=== PATIENT | female | born 1965 | race African-American/Black ===

== ENCOUNTER 2018-08-08 15:41 | Emergency (ER) | payer OTHER | END 2018-08-08 18:47 | disposition left against medical advice (07) | LOC: ERS 15:41 | DX: Z53.21 Procedure and treatment not carried out due to patient leaving prior to being seen by health care provider (principal) ==

== ENCOUNTER 2020-03-22 15:17 | Inpatient (IN) | payer SELFPAY ==
[2020-03-22] MEDS ORDERED: Albuterol 200 PUFF (6.7GM INHALER) ONE (16:08)
[2020-03-22 16:21] LABS: #Basophils 0.1 thou/uL (0.0-0.2); #Eosinphils 0.3 thou/uL (0.0-0.7); #Lymphocytes 1.9 thou/uL (1.20-3.40); #Monocytes 0.4 thou/uL (0.11-0.59); #Neutrophils 2.4 thou/uL (1.40-6.50); %Eosinophils 6.4 % (0.0-10.0); %Monocytes 7.2 % (0.0-10.0); %Neutrophils 47.4 % (42.0-75.0); Hemoglobin 14.2 g/dL (12.0-16.0); Mean Corpuscular HGB CONC 32.9 g/dL (32.0-36.0); Mean Corpuscular Volume 88.2 fL (78.0-98.0); Mean Platelet Volume 8.9 fL (7.4-10.4); Platelet Count 168 thou/uL (130-400); RBC Distribution Width 14.1 % (11.5-14.5); Red Blood Cell (RBC) Count 4.89 mill/uL (4.20-5.40)
[2020-03-22 16:25] LABS: Bacteria/HPF 2+ HPF (None Seen); Bilirubin Negative (Negative); Blood, Urine Negative (Negative); Clarity Turbid (Clear); Glucose, Urine (Dipstick) Normal (Negative); Ketone, Urine Negative (Negative); Leukocyte 75 Leu/uL (Negative); Nitrite Negative (Negative); Protein, Urine (Dipstick) 10 mg/dL (Neg-Trace); RBC/HPF 0-3 HPF (0-3); Specific Gravity, Urine 1.026 (1.002-1.036); Squamous Epithelial 21-50 HPF (0-3); Urobilinogen Normal mg/dL (Less than 2)
--- NOTE | 2020-03-22 16:25 | RAD ---
PORTABLE CHEST ONE VIEW: 03/22/20 at 4:05 p.m. HISTORY: Chest pain. COMPARISON: 04/06/16. FINDINGS: The heart size is normal. The lungs are expanded without focal areas of consolidation, pneumothoraces or pleural effusions. IMPRESSION: No acute process. POS: OFF
[2020-03-22] MEDS ORDERED: methylPREDNISolone Sod Succ/PF 125 MG/2 ML VIAL ONE (16:39)
[2020-03-22 16:55] LABS: ALT (SGPT) 21 U/L (8-55); AST (SGOT) 19 U/L (5-34); Alkaline Phosphatase 93 U/L (40-110); Anion Gap 12 mmol/L (10-20); BUN (Urea Nitrogen) 14 mg/dL (9.8-20.1); Bilirubin, Total 0.4 mg/dL (0.2-1.2); Calc. Creatinine Clearance 0 mL/min (70-130); Calcium 9.3 mg/dL (7.8-10.44); Carbon Dioxide 27 mmol/L (22-29); Chloride 106 mmol/L (98-107); Globulin 3.3 g/dL (2.4-3.5); Glucose 92 mg/dL (70-105); Potassium 4.3 mmol/L (3.5-5.1); Protein, Total 7.3 g/dL (6.0-8.3); Sodium 141 mmol/L (136-145)
[2020-03-22] MEDS ORDERED: Azithromycin 500 MG VIAL ONE (16:59)
[2020-03-22] MEDS ORDERED: Nitroglycerin 2% Ointment 1 INCH/1 GM Packet ONE (17:12)
[2020-03-22] MEDS ORDERED: Labetalol HCl 100 MG/20 ML VIAL ONE (17:12)
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
[2020-03-22 17:57] LABS: SARS-CoV-2 NAA Rapid Test Not Detected (NotDetected)
[2020-03-22] MEDS ORDERED: Albuterol Sulfate 2.5 mg/3 ml Neb NEB PRN (18:15)
[2020-03-22] MEDS ORDERED: cefTRIAXone\\ROCEPHIN 1 GM VIAL ONE (18:16)
[2020-03-22] MEDS ORDERED: Ondansetron PF 4 MG/2 ML Vial IVP PRN (18:20)
[2020-03-22] MEDS ORDERED: Guaifenesin DM 100-10/5 ML UDCUP PO PRN (18:20)
[2020-03-22] MEDS ORDERED: Acetaminophen 500 MG TAB ONE ×2 (18:31→18:32)
[2020-03-22] MEDS ORDERED: Bacteriostatic Water 30 ML VIAL FS PRN (18:45)
[2020-03-22] MEDS ORDERED: Lisinopril/Hydrochlorothiazide 20 mg/12.5 mg Tablet PO SCH (18:45)
[2020-03-22] MEDS: Nicotine 14 MG PATCH TD SCH (20:29)
[2020-03-22] MEDS: HYDROcodone/Acetaminophen 5/325 mg Tablet PO PRN (20:29)
[2020-03-22] MEDS: Doxycycline 100 MG CAP PO SCH (20:29)
[2020-03-22] MEDS: Carvedilol 6.25 MG TAB PO SCH (20:30)
[2020-03-22] MEDS: hydrALAZINE 20 MG/ML VIAL SLOW IVP PRN (22:26)
[2020-03-22] MEDS: Labetalol HCl 100 MG/20 ML VIAL SLOW IVP PRN (23:59)
[2020-03-23] MEDS: methylPREDNISolone Sod Succ 40 MG VIAL IVP SCH ×4 (00:01→18:34)
[2020-03-23] MEDS ORDERED: NIFEdipine XL 60 MG TAB PO SCH ×2 (01:45→09:00)
[2020-03-23] MEDS ORDERED: Melatonin 3 MG TAB PO SCH ×2 (02:15→21:00)
[2020-03-23] MEDS: Acetaminophen 325 MG TAB PO PRN ×3 (02:20→12:52)
[2020-03-23] MEDS: Benzonatate 100 MG CAP PO PRN ×2 (02:21→21:47)
[2020-03-23] MEDS ORDERED: cloNIDine 0.2 MG TAB PO SCH (03:30)
[2020-03-23] MEDS: hydrALAZINE 20 MG/ML VIAL SLOW IVP PRN (03:32)
[2020-03-23 04:48] LABS: #Monocytes 0.1 thou/uL (0.11-0.59); %Basophils 0.5 % (0.0-1.0); %Eosinophils 0.3 % (0.0-10.0); %Lymphocytes 19.8 % (21.0-51.0); %Monocytes 0.9 % (0.0-10.0); %Neutrophils 78.6 % (42.0-75.0); Hemoglobin 14.3 g/dL (12.0-16.0); Mean Corpuscular HGB CONC 32.2 g/dL (32.0-36.0); Mean Corpuscular Hemoglobin 28.4 pg (27.0-31.0); Mean Corpuscular Volume 88.1 fL (78.0-98.0); Mean Platelet Volume 8.9 fL (7.4-10.4); Platelet Count 162 thou/uL (130-400); RBC Distribution Width 14.1 % (11.5-14.5); Red Blood Cell (RBC) Count 5.02 mill/uL (4.20-5.40); White Blood Cell (WBC) Count 5.1 thou/uL (4.8-10.8)
[2020-03-23 05:15] LABS: ALT (SGPT) 19 U/L (8-55); AST (SGOT) 17 U/L (5-34); Albumin 4.1 g/dL (3.5-5.0); Alkaline Phosphatase 93 U/L (40-110); Anion Gap 16 mmol/L (10-20); BUN (Urea Nitrogen) 15 mg/dL (9.8-20.1); Bilirubin, Total 0.3 mg/dL (0.2-1.2); Calc. Creatinine Clearance 167 mL/min (70-130); Calcium 9.7 mg/dL (7.8-10.44); Carbon Dioxide 23 mmol/L (22-29); Chloride 104 mmol/L (98-107); Globulin 3.4 g/dL (2.4-3.5); Glucose 138 mg/dL (70-105); Potassium 3.9 mmol/L (3.5-5.1); Protein, Total 7.5 g/dL (6.0-8.3); Sodium 139 mmol/L (136-145)
[2020-03-23] MEDS: Carvedilol 6.25 MG TAB PO SCH ×2 (08:38→21:32)
[2020-03-23] MEDS: Aspirin 81 mg Enteric Coated Tablet PO SCH (08:38)
[2020-03-23] MEDS: Enoxaparin Sodium 40 MG/0.4 ML SYRINGE SC SCH (08:39)
[2020-03-23] MEDS: NIFEdipine XL 60 MG TAB PO SCH (08:39)
[2020-03-23] MEDS: Doxycycline 100 MG CAP PO SCH ×2 (08:39→21:32)
[2020-03-23] MEDS ORDERED: Lisinopril/Hydrochlorothiazide 20 mg/12.5 mg Tablet PO SCH ×2 (09:00→12:00)
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
[2020-03-23] MEDS: Nicotine 14 MG PATCH TD SCH (21:31)
[2020-03-23] MEDS: guaiFENesin ER 600 MG TAB PO SCH (21:32)
[2020-03-23] MEDS: Labetalol HCl 100 MG/20 ML VIAL SLOW IVP PRN (21:36)
[2020-03-24] MEDS: methylPREDNISolone Sod Succ 40 MG VIAL IVP SCH ×2 (01:52→06:12)
[2020-03-24] MEDS: Acetaminophen 325 MG TAB PO PRN (01:56)
[2020-03-24 05:08] LABS: #Monocytes 0.5 thou/uL (0.11-0.59); #Neutrophils 10.5 thou/uL (1.40-6.50); %Basophils 0.1 % (0.0-1.0); %Lymphocytes 7.9 % (21.0-51.0); %Monocytes 4.3 % (0.0-10.0); %Neutrophils 87.6 % (42.0-75.0); Hemoglobin 13.8 g/dL (12.0-16.0); Mean Corpuscular HGB CONC 32.7 g/dL (32.0-36.0); Mean Corpuscular Volume 88.7 fL (78.0-98.0); Platelet Count 177 thou/uL (130-400); RBC Distribution Width 14.3 % (11.5-14.5); Red Blood Cell (RBC) Count 4.77 mill/uL (4.20-5.40)
[2020-03-24 05:19] LABS: Anion Gap 14 mmol/L (10-20); BUN (Urea Nitrogen) 16 mg/dL (9.8-20.1); Calc. Creatinine Clearance 171 mL/min (70-130); Calcium 9.5 mg/dL (7.8-10.44); Carbon Dioxide 25 mmol/L (22-29); Chloride 104 mmol/L (98-107); Glucose 131 mg/dL (70-105); Sodium 139 mmol/L (136-145)
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
[2020-03-24] MEDS: HYDROcodone/Acetaminophen 5/325 mg Tablet PO PRN (08:30)
[2020-03-24] MEDS: NIFEdipine XL 60 MG TAB PO SCH (08:31)
[2020-03-24] MEDS: Carvedilol 6.25 MG TAB PO SCH (08:31)
[2020-03-24] MEDS: guaiFENesin ER 600 MG TAB PO SCH (08:31)
[2020-03-24] MEDS: Doxycycline 100 MG CAP PO SCH (08:31)
[2020-03-24] MEDS: Enoxaparin Sodium 40 MG/0.4 ML SYRINGE SC SCH (08:32)
[2020-03-24] MEDS: Aspirin 81 mg Enteric Coated Tablet PO SCH (08:32)
[2020-03-24] MEDS ORDERED: Lisinopril/Hydrochlorothiazide 20 mg/12.5 mg Tablet PO SCH (09:00)
[2020-03-24 11:46] VITALS: BP 172/90
[2020-03-24 12:15] VITALS: TEMP 98.1
--- NOTE | 2020-03-25 14:26 | DIS ---
DATE OF ADMISSION: 03/24/2020 DATE OF DISCHARGE: 03/24/2020 PRIMARY CARE PHYSICIAN: Jason Gonsalez. DIAGNOSES AT ADMISSION: Chronic obstructive pulmonary disease exacerbation and left arm pain. DIAGNOSES AT DISCHARGE: 1. Chronic obstructive pulmonary disease exacerbation, resolved. 2. Uncontrolled hypertension, improved. 3. Left arm pain, chronic, musculoskeletal. 4. Tobacco abuse. 5. Morbid obesity. 6. Medication noncompliance. PROCEDURES: None. CONSULTATIONS: None. SUMMARY OF HOSPITAL COURSE: This is a 54-year-old female with a history of COPD, smoking abuse, and hypertension, not taking any medications. She has a history of medication noncompliance and getting charley horses that caused her to want to stop her blood pressure medications. She came in with shortness of breath, was noted to have severe elevations of blood pressure in the 200s/100s, along with some expiratory wheezes and dyspnea. She was treated with some albuterol and steroids and antibiotics. Her respiratory symptoms did resolve over the next two days. She also had blood pressure medicines restarted and adjusted and her blood pressure came down markedly, running in the 140s to 170s at the time of discharge without any symptoms. She tolerated the blood pressure medicines well without side effects, and so she is being discharged on those along with some magnesium and potassium to prevent charley horses. DISCHARGE MANAGEMENT: Discharged home. Follow up with primary care physician in 7 days. ACTIVITY: As tolerated. DIET: Healthy heart, low-sodium diet. DISCHARGE MEDICATIONS: 1. Carvedilol 12.5 mg twice a day, 60 tablets dispensed. 2. Aspirin 81 mg daily, 30 tablets dispensed. 3. Potassium chloride 10 mEq daily, 30 tablets dispensed. 4. Magnesium oxide 400 mg daily, 30 tablets dispensed. 5. Lisinopril/hydrochlorothiazide 20/12.5 mg two tablets p.o. daily, 60 tablets dispensed. 6. Procardia XL 60 mg daily, 30 tablets dispensed. 7. Albuterol sulfate inhaler two puffs every 4 hours as needed for coughing, shortness of breath, or wheezing, one inhaler dispensed. Job ID: [id number]
--- NOTE | 2020-03-29 10:41 | EKG ---
Test Reason : Blood Pressure : / mmHG Vent. Rate : 079 BPM Atrial Rate : 079 BPM P-R Int : 138 ms QRS Dur : 090 ms QT Int : 390 ms P-R-T Axes : 070 056 041 degrees QTc Int : 447 ms Normal sinus rhythm Normal ECG Confirmed by SHIVAM LIVINGSTON, NANCIE Jones ([id number]), deputy editor in chief IKER ENRIQUEZ ([id number]) on 03/29/2020 10:41:31 AM Referred By: Confirmed By:NANCIE LANGLEY MD
== END 2020-03-24 12:17 | disposition home or self-care (01) | DRG 191 ==
LOC: ERS 15:17 → 2SE 18:27 → OBSVTOIN 03-24 11:01
PROVIDERS: ADMIT Internal Medicine; ATTEND Emergency Medicine
DX: J44.1 Chronic obstructive pulmonary disease with (acute) exacerbation (principal); Z68.42 Body mass index [BMI] 45.0-49.9, adult; I16.1 Hypertensive emergency; I10 Essential (primary) hypertension; E66.01 Morbid (severe) obesity due to excess calories; Z20.828 Contact with and (suspected) exposure to other viral communicable diseases; Z88.0 Allergy status to penicillin; M79.602 Pain in left arm; Z91.14 Patient's other noncompliance with medication regimen
CPT/HCPCS: 0240U; 36415; 71045; 80048; 80053; 81003; 81015; 83605; 83880; 84484; 85025; 93005; 93010; 94640; 94760; 96365; 96367; 96375; 96376; G0378; J0360; J0456; J0696; J2920; J2930; J7620

== ENCOUNTER 2020-08-27 16:01 | Emergency (ER) | payer SELFPAY ==
[2020-08-27 16:26] LABS: #Eosinphils 0.5 thou/uL (0.0-0.7); #Lymphocytes 1.3 thou/uL (1.20-3.40); #Monocytes 0.4 thou/uL (0.11-0.59); #Neutrophils 4.8 thou/uL (1.40-6.50); %Basophils 0.5 % (0.0-1.0); %Eosinophils 6.9 % (0.0-10.0); %Lymphocytes 18.8 % (21.0-51.0); %Monocytes 5.9 % (0.0-10.0); %Neutrophils 67.9 % (42.0-75.0); Hemoglobin 14.7 g/dL (12.0-16.0); Mean Corpuscular HGB CONC 32.6 g/dL (32.0-36.0); Mean Corpuscular Hemoglobin 29.1 pg (27.0-31.0); Mean Corpuscular Volume 89.4 fL (78.0-98.0); Platelet Count 174 thou/uL (130-400); RBC Distribution Width 14.3 % (11.5-14.5); Red Blood Cell (RBC) Count 5.03 mill/uL (4.20-5.40); White Blood Cell (WBC) Count 7.1 thou/uL (4.8-10.8)
[2020-08-27 16:47] LABS: ALT (SGPT) 16 U/L (8-55); AST (SGOT) 15 U/L (5-34); Albumin 4.1 g/dL (3.5-5.0); Alkaline Phosphatase 104 U/L (40-110); Anion Gap 12 mmol/L (10-20); BUN (Urea Nitrogen) 14 mg/dL (9.8-20.1); Bilirubin, Total 0.4 mg/dL (0.2-1.2); Calc. Creatinine Clearance 0 mL/min (70-130); Calcium 9.4 mg/dL (7.8-10.44); Carbon Dioxide 26 mmol/L (22-29); Chloride 108 mmol/L (98-107); Globulin 3.1 g/dL (2.4-3.5); Glucose 108 mg/dL (70-105); Potassium 4.7 mmol/L (3.5-5.1); Protein, Total 7.2 g/dL (6.0-8.3); Sodium 141 mmol/L (136-145)
== END 2020-08-27 18:00 | disposition home or self-care (01) ==
LOC: ERS 16:01
DX: R07.89 Other chest pain (principal); R06.00 Dyspnea, unspecified; I10 Essential (primary) hypertension; J45.909 Unspecified asthma, uncomplicated; F17.210 Nicotine dependence, cigarettes, uncomplicated
CPT/HCPCS: 36415; 71045; 80053; 83880; 84484; 85025; 93005; 94760

== ENCOUNTER 2021-11-07 12:18 | Emergency (ER) | payer SELFPAY ==
[2021-11-07 14:53] LABS: Bilirubin Negative (Negative); Blood, Urine Negative (Negative); Clarity Clear (Clear); Glucose, Urine (Dipstick) Normal (Negative); Ketone, Urine Negative (Negative); Leukocyte Negative Leu/uL (Negative); Nitrite Negative (Negative); Protein, Urine (Dipstick) Negative (Neg-Trace); Urobilinogen Normal mg/dL (Less than 2); pH, Urine 6.5 (5.0-9.0)
[2021-11-07] MEDS ORDERED: Morphine 4 MG/ML VIAL ONE (14:55)
[2021-11-07] MEDS ORDERED: niCARdipine 25 MG/10 ML VIAL ONE (14:55)
[2021-11-07] MEDS ORDERED: Aspirin Chewable 81 MG TAB ONE (14:55)
== END 2021-11-07 15:19 | disposition home or self-care (01) ==
LOC: ERS 12:18
DX: R10.2 Pelvic and perineal pain (principal); I10 Essential (primary) hypertension; F17.210 Nicotine dependence, cigarettes, uncomplicated
CPT/HCPCS: 71045; 76856; 81003; J2270

== ENCOUNTER 2024-03-10 10:31 | Emergency (ER) | payer OTHER ==
[2024-03-10 11:06] LABS: #Basophils Less than 0.03 10x3/uL (0.0-0.2); %Basophils 0.5 % (0.0-1.0); %Eosinophils 4.9 % (0.0-10.0); %Lymphocytes 40.9 % (21.0-51.0); %Monocytes 8.2 % (0.0-10.0); %Neutrophils 45.2 % (42.0-75.0); Hematocrit 43.3 % (36.0-47.0); Hemoglobin 14.2 g/dL (12.0-16.0); Mean Corpuscular HGB CONC 32.8 g/dL (32.0-36.0); Mean Corpuscular Hemoglobin 27.7 pg (27.0-31.0); Mean Corpuscular Volume 84.6 fL (78.0-98.0); Platelet Count 206 10x3/uL (130-400); RBC Distribution Width 14.8 % (11.5-14.5); Red Blood Cell (RBC) Count 5.12 mill/uL (4.20-5.40)
[2024-03-10 11:22] LABS: ALT (SGPT) 10 U/L (8-55); AST (SGOT) 12 U/L (5-34); Albumin 3.7 g/dL (3.5-5.0); Alkaline Phosphatase 81 U/L (40-110); Anion Gap 13 mmol/L (10-20); BUN (Urea Nitrogen) 11 mg/dL (9.8-20.1); Bilirubin, Total 0.5 mg/dL (0.2-1.2); Calc. Creatinine Clearance 0 mL/min (70-130); Calcium 9.2 mg/dL (7.8-10.44); Carbon Dioxide 24 mmol/L (22-29); Chloride 107 mmol/L (98-107); Estimated GFR 73; Globulin 3.4 g/dL (2.4-3.5); Glucose 128 mg/dL (70-105); Potassium 3.7 mmol/L (3.5-5.1); Protein, Total 7.1 g/dL (6.0-8.3); Sodium 140 mmol/L (136-145)
[2024-03-10 11:23] LABS: Acetaminophen Less than 10 mcg/mL (Less than 10); Alcohol Less than 10.0 mg/dL (Less than 10); Salicylate Less than 8.0 mg/dL (Less than 8.0)
[2024-03-10 11:26] LABS: Troponin I Less than 0.010 ng/mL (< 0.028)
[2024-03-10 12:14] LABS: Bacteria/HPF None Seen HPF (None Seen); Bilirubin Negative (Negative); Blood, Urine Negative (Negative); CAUTI Indications for Culture Pelvic or flank pain; Clarity Turbid (Clear); Glucose, Urine (Dipstick) Normal (Negative); Ketone, Urine Negative (Negative); Leukocyte Negative Leu/uL (Negative); Nitrite Negative (Negative); Protein, Urine (Dipstick) Negative (Neg-Trace); RBC/HPF 0-3 HPF (0-3); Specific Gravity, Urine 1.009 (1.002-1.036); Urobilinogen Normal mg/dL (Less than 2); WBC/HPF 0-3 HPF (0-3)
[2024-03-10 12:17] LABS: Urine Culture Reflex No No
[2024-03-10 12:19] LABS: Amphetamine Not Detected (NotDetected); Barbiturates Screen Not Detected (NotDetected); Benzodiazepine Screen Not Detected (NotDetected); Cocaine Metabolite Screen Not Detected (NotDetected); Methadone Not Detected (NotDetected); Methamphetamine Not Detected (NotDetected); Opiate Screen Not Detected (NotDetected); Oxycodone Screen Not Detected (NotDetected); Phencyclidine (PCP) Not Detected (NotDetected); THC/Cannabinoid Screen Detected (NotDetected); Tricyclic Screen Not Detected (NotDetected)
[2024-03-10] MEDS ORDERED: Ketorolac Tromethamine 30 MG (1 mL) VIAL ONE (13:21)
== END 2024-03-10 13:43 | disposition home or self-care (01) ==
LOC: ERS 10:31
DX: R07.89 Other chest pain (principal); I10 Essential (primary) hypertension; J45.909 Unspecified asthma, uncomplicated; F17.210 Nicotine dependence, cigarettes, uncomplicated
CPT/HCPCS: 36415; 71045; 80053; 80306; 80307; 81001; 84484; 85025; 93005; 96372; J1885

== ENCOUNTER 2025-01-16 14:47 | Outpatient (CLI) | payer OTHER | END 2025-01-16 14:48 | disposition home or self-care (01) | LOC: BICMAMMO 14:47 | PROVIDERS: ATTEND Nurse Practitioner Family | DX: Z12.31 Encounter for screening mammogram for malignant neoplasm of breast (principal); Z80.3 Family history of malignant neoplasm of breast | CPT/HCPCS: 77063; 77067 ==